=== PATIENT | male | born 1970 | race Caucasian/White ===

== ENCOUNTER → 2024-11-11 08:10 | Outpatient (REF) | payer OTHER, SELFPAY | LOC: RAD 08:10 | PROVIDERS: ATTENDING PHYSICIAN Internal Medicine; FAMILY PHYSICIAN Internal Medicine | DX: N18.30 Chronic kidney disease, stage 3 unspecified (principal) | CPT/HCPCS: 76775 ==

== ENCOUNTER 2024-11-16 12:05 | Emergency (ER) | payer OTHER, SELFPAY ==
[2024-11-16 12:10] VITALS: BP 224/152
[2024-11-16 12:25] VITALS: BP 220/120
[2024-11-16] MEDS: MOTRIN 600 MG PO (12:58)
--- NOTE | 2024-11-16 13:01 | ED.MUSCINJ ---
HPI-Injury
General
Chief Complaint: Fall
Source: patient
Exam Limitations: none
Time Seen by Provider: 11/16/24 12:40
Nursing documentation reviewed up to this point in time: agreed with
History of Present Illness-Injury
Is this injury a work related problem?: No
Is pt an associate of [facility]?: No
Initial Injury comments:
54-year-old male hypertension chronic right ankle pain for 20 years presents with right leg pain slipped on the ice and the went back no pop had some trouble walking was told he might need to have an ankle fusion but the live with the pain, no blood
thinners, no head trauma, did not take his blood pressure meds today did not take any meds today for pain
Past History
Past History
ED Past Medical History: CVA, HTN, Hypercholesterolemia and NIDDM
Social History
Tobacco: Non-smoker
Alcohol: Occasional
Drug: None
Personal: Single
Living: with family
Review of Systems
Review of Systems
All Other Systems: Not applicable
EENT: Reports no symptoms
Respiratory: Reports no symptoms
Cardiac: Reports no symptoms; Denies syncope
ABD/GI: Reports no symptoms
Musculoskeletal: Reports joint pain; Denies muscle stiffness, neck pain or back pain
Phy Exam
Physical Exam
Physical Exam:
Physical Exam
General: no apparent distress, not acutely ill
Neck: No apparent head or neck trauma
Heart: s1/s2 regular rate and rhythm, no murmur. equal radial pulses.
Lungs: no acute respiratory distress. clear bilaterally
Neuro: alert and oriented. no focal neurological deficits
Skin: no rash
Psychiatric: well kept. interactive and cooperative
Extremities: Mild tenderness in the right proximal fibula no obvious knee ligamentous injury patella appears intact
Injury Course
Orders/Labs/Results
Orders:
Orders
11/16/24 12:16
EKG [Electrocardiogram (*1)] Urgent
Reason for Study: Hypertension, Benign
EKG- Treatment ONCE
11/16/24 12:52
Ibuprofen [Motrin] 600 mg PO NOW STA
Tib/Fib, Right 2 View [CR Leg Tibia/fibula Right 2 Vw] Urgent
Comment:
Reason For Exam: fall pain
11/16/24 12:56
Carvedilol [Coreg] 25 mg PO NOW STA
11/16/24 13:40
Huy Wrap Right-Treatment ONCE
MDM/Problems Addressed
Differential Diagnosis Includes:
Contusion abrasion fracture ligamentous injury tendinous injury hypertension
MDM/Problems Addressed:
Knee pain
Chronic conditions affecting care: HTN
Acute Exacerbation and/or Progression of Chronic Illness:
Chronic ankle pain
Acute Exacerbation and/or Progression of Chronic Illness: HTN
*Radiology
Radiology exam reviewed: preliminary read by ED provider
*Pulse Oximetry
Patient hypoxic: no
*Critical Care Note
Total Time (30-74mins, 75-104mins- exclusive of procedures): Not Applicable
Update Note
Update Note:
Will check x-ray, give a dose of his blood pressure med treat with some pain meds likely will need nonemergent orthopedic and PCP follow-up
Update x-ray noted no obvious fracture formal report pending blood pressure improved
ED Attending Note
-
Portions of this chart may have been created with voice recognition software.� Occasional wrong word or��sound alike� substitutions may have occurred due to the inherent limitations of voice recognition software.
Discharge Plan
Departure
Patient Disposition: Home (Routine Discharge)
Date of Disposition: 11/16/24
Time of Disposition: 13:40
Patient with high blood pressure during this ER visit?: Yes
Condition: Good
Discharge Problem:
HTN (hypertension), Injury of knee
Instructions: Preventing falls in adults, Contusion (DC), Skin Abrasions (DC)
Prescriptions:
No Action
aspirin 81 MG tablet,chewable
81 mg PO HS
metformin 500 MG tablet
500 mg PO BID
atorvastatin 80 MG tablet
80 mg PO QPM Qty: 30 0RF
carvedilol [Coreg] 25 MG tablet
25 mg PO BID Qty: 60 0RF
isosorbide mononitrate 60 MG tablet extended release 24 hr
60 mg PO DAILY Qty: 30 0RF
Referrals:
Pilar Sam DO [Family Provider] -
Azar Warren MD [Active] - Follow up in 5-7 days
Activity Restrictions/Additional Instructions:
Rest, ice, Tylenol as needed for pain take your blood pressure medicine as prescribed
Follow-up with Dr. Warren or his associates from [facility] orthopedics
Interventions
Interventions:
*Risk Screen - Suicide Last Done: 11/16/24 12:11
*General Assessment Last Done: 11/16/24 12:11
*Neglect/Abuse Screening Last Done: 11/16/24 12:11
*ED COVID-19 Vaccine History Last Done: 11/16/24 12:11
Discharge Date and Time
Print Language: [place] R[place]
[2024-11-16] MEDS: COREG 25 MG PO (13:09)
[2024-11-16 13:59] VITALS: BP 170/108
== END 2024-11-16 14:05 | disposition home or self-care (01) ==
LOC: EMR 12:05
PROVIDERS: EMERGENCY PHYSICIAN Emergency Medicine; FAMILY PHYSICIAN Internal Medicine
DX: S89.91XA Unspecified injury of right lower leg, initial encounter (principal); W00.0XXA Fall on same level due to ice and snow, initial encounter; I10 Essential (primary) hypertension; E78.00 Pure hypercholesterolemia, unspecified; E11.9 Type 2 diabetes mellitus without complications; Z86.73 Personal history of transient ischemic attack (TIA), and cerebral infarction without residual deficits; G89.29 Other chronic pain
CPT/HCPCS: 99284; 73590; 93005

== ENCOUNTER 2025-01-19 15:30 | Emergency (ER) | payer OTHER, SELFPAY ==
[2025-01-19] VITALS (7 sets, daily range): BP systolic 153–223; BP diastolic 90–141
[2025-01-19 15:57] LABS: % Basophils 0.6 % (0-2); % Eosinophils 0.9 % (0-6); % Immature Granulocytes 0.4 % (0-0.5); % Lymphocytes 19.6 % (20.5-51.1); % Monocytes 5.6 % (1.7-9.3); % Neutrophils 72.9 % (42.2-75.2); Absolute Basophils 0.1 10^3/uL (0-0.2); Absolute Eosinophils 0.1 10^3/uL (0-0.7); Absolute Lymphocytes 1.5 10^3/uL (1.2-3.4); Absolute Monocytes 0.4 10^3/uL (0.1-0.6); Absolute Neutrophils 5.7 10^3/uL (1.4-6.5); Hematocrit 43.3 % (39.0-52.0); Hemoglobin 15.4 g/dL (13.0-18.0); Mean Corp Hgb Conc. 35.6 g/dL (33.0-37.0); Mean Corpuscular Hgb 29.6 pg (27.0-31.0); Mean Corpuscular Volume 83.3 fL (80.0-94.0); Mean Platelet Volume 10.6 fL (7.4-10.4); Nucleated Red Blood Cells % 0 % (-); Platelet Count 169 10^3/uL (130-400); Red Cell Dist. Width 13.2 % (11.5-14.5); White Blood Cell Count 7.8 10^3/uL (4.8-10.8)
[2025-01-19 16:11] LABS: ALT (SGPT) 14 U/L (0-50); AST (SGOT) 19 U/L (17-59); Alkaline Phosphatase 104 U/L (38-126); Blood Urea Nitrogen 27 mg/dl (9-20); Calcium 9.5 mg/dl (8.4-10.2); Carbon Dioxide 24 mmol/L (22-30); Chloride 102 mmol/L (98-107); Glucose 132 mg/dl (70-99); Potassium 3.6 mmol/L (3.5-5.1); Sodium 139 mmol/L (135-145); Total Bilirubin 1.1 mg/dl (0.2-1.3); Total Protein 7.8 g/dl (6.3-8.2); eGFR 36.26
[2025-01-19 16:21] LABS: Troponin I 0.031 ng/ml
[2025-01-19] MEDS: TRANDATE 10 MG IV (16:26)
[2025-01-19] MEDS: APRESOLINE 100 MG PO (16:44)
[2025-01-19] MEDS: NORVASC 10 MG PO (16:44)
[2025-01-19] MEDS: COREG 25 MG PO (16:44)
--- NOTE | 2025-01-19 18:36 | ED.GENMED ---
History of Present Illness
General
Chief Complaint: Blood Pressure Problem
Source: patient
Exam Limitations: none
Time Seen by Provider: 01/19/25 16:08
History of Present Illness
History of Present Illness:
55-year-old male who presents for uncontrolled hypertension. Patient reportedly was at physical therapy and they noted his blood pressure to be elevated. Patient states he has had a lot going on as he had a knee injury as well as his long-term
girlfriend had recently. He states he has not been diligent with his blood pressure medicines in fact he has not taken over the last few days. He is unable to contribute to when he last blood pressure pills. Patient states his blood
pressure is never 'normal'. He states it runs high. Denies any chest pain. In fact he denies any symptoms at all.
Past History
Past History
ED Past Medical History: CVA, HTN, Hypercholesterolemia and NIDDM
Social History
Tobacco: Non-smoker
Alcohol: Occasional
Drug: None
Personal: Single
Living: with family
Phy Exam
Physical Exam
Physical Exam:
CONSTITUTIONAL Patient alert and oriented to person, place and time. Well-appearing. Vital signs reviewed.
HEAD atraumatic, normocephalic.
EYES eyelids normal to inspection, Extraocular muscles intact, Conjunctiva normal, Sclera normal.
NECK normal range of motion, Trachea midline, no jugular venous distention.
RESPIRATORY CHEST No respiratory distress noted, Chest expansion equal, Bilateral breath sounds clear.
CARDIOVASCULAR regular rate and rhythm, Heart sounds normal.
BACK normal inspection, no obvious deformities
UPPER EXTREMITY range of motion normal, Motor strength normal, no cyanosis, no edema.
LOWER EXTREMITY range of motion normal, Motor strength normal, no cyanosis, no edema.
NEURO Speech normal, No focal motor deficits, Bethesda coma scale 15, Memory normal, Cranial Nerves intact to screening exam.
SKIN skin warm, dry, and normal in color.
Course
Orders/Labs/Results
Orders:
Orders
01/19/25 15:35
Electrocardiogram (*1) Urgent
Reason for Study: Hypertension, Benign
EKG- Treatment ONCE
01/19/25 15:37
Complete Blood Count/With Diff Urgent
Comprehensive Metabolic Panel Urgent
Troponin I Urgent
01/19/25 15:49
Electrocardiogram (*1) Urgent
Reason for Study: Hypertension, Benign
EKG- Treatment ONCE
01/19/25 16:19
Labetalol HCl [Trandate] 10 mg IV NOW STA
01/19/25 16:37
Amlodipine [Norvasc] 10 mg PO NOW STA
01/19/25 16:38
Carvedilol [Coreg] 25 mg PO NOW STA
HydrALAZINE [Apresoline] 100 mg PO NOW STA
01/19/25 17:54
Vital Signs- Treatment ONCE
Frequency: Once
Abnormal Lab Results
01/19/25
15:37
MPV 10.6 H fL
(7.4-10.4)
Lymphocytes % 19.6 L %
(20.5-51.1)
BUN 27 H mg/dl
(9-20)
Creatinine 2.1 H mg/dL
(0.7-1.3)
Glucose 132 H mg/dl
(70-99)
01/19/25 15:37
01/19/25 15:37
Vital Signs
Initial and Last Documented VS:
Initial Vital Signs
Temp Pulse Resp BP Pulse Ox
98.2 F 101 18 223/141 96
01/19/25 15:32 01/19/25 15:32 01/19/25 15:32 01/19/25 15:32 01/19/25 15:32
Last Documented Vital Signs
Temp Pulse Resp BP Pulse Ox
98.2 F 86 18 163/93 95
01/19/25 15:32 01/19/25 18:00 01/19/25 18:00 01/19/25 18:00 01/19/25 18:00
MDM/Problems Addressed
MDM/Problems Addressed:
Uncontrolled hypertension
*Pulse Oximetry
Patient hypoxic: no
*EKG
Interpreted by ED Provider?: Yes
Interpretation: abnormal
Comparison EKG: no changes (Compared to November 2024)
Rate: normal
Rhythm: sinus
[place]: normal axis
QRS Pattern: left vent hypertrophy
Ischemia: non-specific ST changes
*Proctologist Interpretation
Rate: normal
Interpretation: normal
Rhythm: sinus
*Critical Care Note
Total Time (30-74mins, 75-104mins- exclusive of procedures): 30 minutes
Data Reviewed
Review of Other/Old Records Reveals: Testing (Prior EKG reviewed)
Source: patient
Prescriptions/Medications Considered But Not Given:
Considered labetalol drip but patient responded well to oral medications
Patient Management
Escalation/DeEscalation of care consider admission/obs:
Asymptomatic and has missed his doses of medications. Will strongly encourage him to take his medications daily and not miss any dosage. Patient appears well otherwise and labs unremarkable. Creatinine noted. Patient does not want to stay. I
will refer him to nephrology. Will also recommend repeat lab testing in the next 3 to 5 days.
ED Attending Note
-
Portions of this chart may have been created with voice recognition software.� Occasional wrong word or��sound alike� substitutions may have occurred due to the inherent limitations of voice recognition software.
Discharge Plan
Departure
Patient Disposition: Home (Routine Discharge)
Date of Disposition: 01/19/25
Time of Disposition: 18:40
Patient with high blood pressure during this ER visit?: Yes
Discharge Problem:
Uncontrolled hypertension, Acute kidney injury
Instructions: Acute kidney injury, High Blood Pressure (DC), BLOOD PRESSURE
Prescriptions:
No Action
aspirin 81 MG tablet,chewable
81 mg PO DAILY
metformin 500 MG tablet
500 mg PO BID
carvedilol [Coreg] 25 MG tablet
25 mg PO BID Qty: 60 0RF
isosorbide mononitrate 60 MG tablet extended release 24 hr
60 mg PO DAILY Qty: 30 0RF
amlodipine 10 mg Tablet
10 mg PO DAILY
hydralazine 100 mg Tablet
100 mg PO TID
rosuvastatin 20 mg Tablet
20 mg PO DAILY
cholecalciferol (vitamin D3) [Vitamin D3] 25 mcg (1,000 unit) Tablet
25 mcg PO DAILY
Referrals:
Pilar Sam DO [Family Provider] -
Misty Snyder MD [Active] -
Activity Restrictions/Additional Instructions:
Please see your doctor in the next 48 hours for follow-up and reevaluation. Return immediately for numbness, tingling, motor weakness, headache, chest pain, shortness of breath or any other concerns. Please do not miss your blood pressure
medications and take them daily as prescribed. Please have your doctor recheck your lab work in the next 3 to 5 days. Please also follow-up with nephrology in the next 1 week.
Interventions
Interventions:
*Risk Screen - Suicide Last Done: 01/19/25 15:32
*Neglect/Abuse Screening Last Done: 01/19/25 15:32
*ED COVID-19 Vaccine History Last Done: 01/19/25 15:32
ED- Cardiac Assessment Last Done: 01/19/25 16:35
ED- Neurological Assessment Last Done: 01/19/25 16:35
ED- Pulmonary Assessment Last Done: 01/19/25 16:35
Discharge Date and Time
Print Language: LATVIAN
== END 2025-01-19 19:05 | disposition home or self-care (01) ==
LOC: EMR 15:30
PROVIDERS: Emergency Medicine; EMERGENCY PHYSICIAN Emergency Medicine; FAMILY PHYSICIAN Internal Medicine
DX: I10 Essential (primary) hypertension (principal); N17.9 Acute kidney failure, unspecified; E78.00 Pure hypercholesterolemia, unspecified; E11.9 Type 2 diabetes mellitus without complications; Z86.73 Personal history of transient ischemic attack (TIA), and cerebral infarction without residual deficits
CPT/HCPCS: 99283; 96374; 80053; 84484; 85025; 93005

== ENCOUNTER 2025-02-16 11:55 | Emergency (ER) | payer OTHER, SELFPAY ==
[2025-02-16] VITALS (8 sets, daily range): BP systolic 121–149; BP diastolic 65–87; PULSE 68–78; BMI 29.9
[2025-02-16 11:58] LABS: Glucose - Point of Care 174 mg/dl (70-99)
[2025-02-16 12:36] LABS: % Basophils 0.7 % (0-2); % Eosinophils 0.7 % (0-6); % Immature Granulocytes 0.2 % (0-0.5); % Monocytes 5.2 % (1.7-9.3); % Neutrophils 80.2 % (42.2-75.2); ALT (SGPT) 16 U/L (0-50); AST (SGOT) 18 U/L (17-59); Absolute Basophils 0.1 10^3/uL (0-0.2); Absolute Eosinophils 0.1 10^3/uL (0-0.7); Absolute Lymphocytes 1.1 10^3/uL (1.2-3.4); Absolute Monocytes 0.4 10^3/uL (0.1-0.6); Absolute Neutrophils 6.6 10^3/uL (1.4-6.5); Albumin 4.3 g/dl (3.5-5.0); Alkaline Phosphatase 63 U/L (38-126); Blood Urea Nitrogen 31 mg/dl (9-20); Calcium 8.9 mg/dl (8.4-10.2); Carbon Dioxide 21 mmol/L (22-30); Chloride 110 mmol/L (98-107); Glucose 182 mg/dl (70-99); Hematocrit 37.5 % (39.0-52.0); Hemoglobin 13.1 g/dL (13.0-18.0); Mean Corp Hgb Conc. 34.9 g/dL (33.0-37.0); Mean Corpuscular Hgb 29.7 pg (27.0-31.0); Nucleated Red Blood Cells % 0 % (-); Platelet Count 163 10^3/uL (130-400); Potassium 4.3 mmol/L (3.5-5.1); Red Blood Cell Count 4.41 10^6/uL (4.70-6.10); Red Cell Dist. Width 13.3 % (11.5-14.5); Sodium 142 mmol/L (135-145); Total Bilirubin 0.7 mg/dl (0.2-1.3); Total Protein 6.5 g/dl (6.3-8.2); White Blood Cell Count 8.2 10^3/uL (4.8-10.8); eGFR 32.51
[2025-02-16] MEDS: NSS 500 IV (13:01)
--- NOTE | 2025-02-16 15:28 | ED.GENMED ---
History of Present Illness
General
Chief Complaint: Fainting Sensation
Source: patient
Exam Limitations: none
Time Seen by Provider: 02/16/25 12:27
Nursing documentation reviewed up to this point in time: agreed with
History of Present Illness
History of Present Illness:
55-year-old male with past medical history of CKD hypertension hyperlipidemia presenting to the emergency department after feeling lightheaded while standing during physical therapy. Patient thought that his sugar may be low and drank some apple
juice and had a cookie he does feel better at this point. Denies any chest pain palpitations shortness of breath recent illness.
Past History
Past History
ED Past Medical History: CVA, HTN, Hypercholesterolemia and NIDDM
Social History
Tobacco: Non-smoker
Alcohol: Occasional
Drug: None
Personal: Single
Living: with family
Review of Systems
Review of Systems
Allergies reviewed?: Yes
All Other Systems: ROS reviewed and negative except as documented in HPI and ROS
Phy Exam
Physical Exam
Physical Exam:
GENERAL: Alert , in no apparent distress
EYE: pupils equal and reactive
NECK: Supple, no significant adenopathy.
ENT: o/p clr, mmm.
CARDIAC: Regular rate and rhythm .
LUNGS: Clear breath sounds bilaterally, no acute respiratory distress, no wheezes/rales/rhonchi
ABDOMEN: Soft, without focal tenderness, no r/g, no cvat
NEUROLOGICAL: Alert and oriented, no focal neuro deficits
SKIN: Warm and dry, skin intact.
MUSCULOSKELETAL: No edema, well perfused.
PSYCH: Normal and appropriate interaction.
Course
Orders/Labs/Results
Orders:
Orders
02/16/25 11:59
EKG [Electrocardiogram (*1)] Urgent
Reason for Study: Vertigo / Dizzy
02/16/25 12:00
EKG- Treatment ONCE
02/16/25 12:05
Complete Blood Count/With Diff Urgent
Comprehensive Metabolic Panel Urgent
02/16/25 12:52
0.9% Sodium Chloride 500 ml [Nss] 500 ml IV BOLUS
Abnormal Lab Results
02/16/25 02/16/25
11:57 12:05
RBC 4.41 L 10^6/uL
(4.70-6.10)
Hct 37.5 L %
(39.0-52.0)
MPV 11.0 H fL
(7.4-10.4)
Absolute Neuts (auto) 6.6 H 10^3/uL
(1.4-6.5)
Absolute Lymphs (auto) 1.1 L 10^3/uL
(1.2-3.4)
Neutrophils % 80.2 H %
(42.2-75.2)
Lymphocytes % 13.0 L %
(20.5-51.1)
Chloride 110 H mmol/L
(98-107)
Carbon Dioxide 21 L mmol/L
(22-30)
BUN 31 H mg/dl
(9-20)
Creatinine 2.3 H mg/dL
(0.7-1.3)
Glucose 182 H mg/dl
(70-99)
POC Glucose 174 H mg/dl
(70-99)
02/16/25 12:05
02/16/25 12:05
Vital Signs
Initial and Last Documented VS:
Initial Vital Signs
Temp Pulse Resp BP Pulse Ox
97.6 F 68 18 137/68 98
02/16/25 11:57 02/16/25 11:57 02/16/25 11:57 02/16/25 11:57 02/16/25 11:57
Last Documented Vital Signs
Temp Pulse Resp BP Pulse Ox
97.6 F 68 18 137/68 98
02/16/25 11:57 02/16/25 11:57 02/16/25 11:57 02/16/25 11:57 02/16/25 11:57
MDM/Problems Addressed
MDM/Problems Addressed:
55-year-old male presenting to the emergency department today with concerns of brief episode of lightheadedness when standing up with PT. No chest pain shortness of breath or palpitations associated. Upon arrival vital signs are normal patient no
distress asymptomatic at this point after drinking some apple juice. Labs here showing potential slight dehydration with elevated BUN creatinine very slightly above baseline there is a possibility of slight dehydration was given fluids. Otherwise
patient with no chest pain or palpitations at any point. PE seems very unlikely at this point no concerns of leg swelling normal vital signs no changes to the EKG. He otherwise was asymptomatic throughout ER stay normal orthostatic vital signs
patient appears stable for discharge return precautions given.
*Critical Care Note
Total Time (30-74mins, 75-104mins- exclusive of procedures): Not Applicable
ED Attending Note
-
Portions of this chart may have been created with voice recognition software.� Occasional wrong word or��sound alike� substitutions may have occurred due to the inherent limitations of voice recognition software.
Discharge Plan
Departure
Patient Disposition: Home (Routine Discharge)
Date of Disposition: 02/16/25
Time of Disposition: 15:30
Patient with high blood pressure during this ER visit?: No
Condition: Good
Covid-19: Not Applicable
Discharge Problem:
Lightheadedness
Instructions: Near Fainting (DC)
Prescriptions:
No Action
aspirin 81 MG tablet,chewable
81 mg PO DAILY
metformin 500 MG tablet
500 mg PO BID
carvedilol [Coreg] 25 MG tablet
25 mg PO BID Qty: 60 0RF
isosorbide mononitrate 60 MG tablet extended release 24 hr
60 mg PO DAILY Qty: 30 0RF
amlodipine 10 mg Tablet
10 mg PO DAILY
hydralazine 100 mg Tablet
100 mg PO TID
rosuvastatin 20 mg Tablet
20 mg PO DAILY
cholecalciferol (vitamin D3) [Vitamin D3] 25 mcg (1,000 unit) Tablet
25 mcg PO DAILY
Referrals:
Pilar Sam DO [Family Provider] -
Activity Restrictions/Additional Instructions:
You came to the emergency department today after feeling lightheaded. Here your reassuring assessment. Please stay hydrated and follow-up closely with your primary care doctor. If you develop any chest pain palpitations or worsening
lightheadedness please immediately return to the ER for reassessment.
Interventions
Interventions:
*Risk Screen - Suicide Last Done: 02/16/25 11:57
*General Assessment Last Done: 02/16/25 11:57
*Neglect/Abuse Screening Last Done: 02/16/25 11:57
*ED- Fall Risk Assessment Last Done: 02/16/25 11:57
*ED COVID-19 Vaccine History Last Done: 02/16/25 11:57
Discharge Date and Time
Print Language: BRAZILIAN
== END 2025-02-16 16:10 | disposition home or self-care (01) ==
LOC: EMR 11:55
PROVIDERS: Emergency Medicine; EMERGENCY PHYSICIAN Emergency Medicine; FAMILY PHYSICIAN Internal Medicine
DX: R42 Dizziness and giddiness (principal); I12.9 Hypertensive chronic kidney disease with stage 1 through stage 4 chronic kidney disease, or unspecified chronic kidney disease; E11.22 Type 2 diabetes mellitus with diabetic chronic kidney disease; N18.9 Chronic kidney disease, unspecified; E78.00 Pure hypercholesterolemia, unspecified; Z86.73 Personal history of transient ischemic attack (TIA), and cerebral infarction without residual deficits
CPT/HCPCS: 99283; 80053; 82962; 85025; 93005

== ENCOUNTER 2025-04-26 16:18 | Emergency (ER) | payer OTHER, SELFPAY ==
[2025-04-26] VITALS (7 sets, daily range): BP systolic 168–195; BP diastolic 93–135; BMI 28.2
--- NOTE | 2025-04-26 17:23 | ED.GENMED ---
History of Present Illness
General
Chief Complaint: Blood Pressure Problem
Source: patient
Exam Limitations: none
Time Seen by Provider: 04/26/25 16:41
Nursing documentation reviewed up to this point in time: agreed with
History of Present Illness
History of Present Illness:
Patient is a 55-year-old male with history hypertension, hyperlipidemia, diabetes, CAD who presents to the emergency department from PCP after high blood pressure readings in office. Patient states he was sent during an annual physical at his
primary care office where his blood pressure was extremely elevated. Patient is asymptomatic at this time and denies any headache, visual changes/double vision, dizziness/lightheadedness, tearing back pain, chest pain breath, numbness/tingling or
weakness in lower extremities.
Patient states he is on multiple blood pressure medications at home as prescribed by his primary care provider although was unsure of the exact name. He does admit to taking his hydralazine twice a day rather than 3 times a day as prescribed.
Patient denies any other recent changes in medications.
Past History
Past History
ED Past Medical History: CVA, HTN, Hypercholesterolemia and NIDDM
Social History
Tobacco: Non-smoker
Alcohol: Occasional
Drug: None
Personal: Single
Living: with family
Review of Systems
Review of Systems
Allergies reviewed?: Yes
All Other Systems: ROS reviewed and negative except as documented in HPI and ROS
Phy Exam
Physical Exam
Physical Exam:
Vitals: Hypertensive, otherwise vital signs are stable. Afebrile
General: Patient is in no apparent distress
Skin: Warm and dry, no rashes or lesions
Head: Normocephalic, atraumatic
Eyes: Sclera nonicteric. EOMs intact. No nystagmus.
Throat: Protecting airway
Neck: Normal ROM, no cervical spine tenderness, no meningismus
Cardiac: Regular rate and rhythm, no murmurs. 2+ palpable radial pulses
Pulm: Normal respiratory effort, no wheezes, rales, rhonchi heard on exam
.
Abdomen: No abdominal tenderness.
Extremities: No evidence of cyanosis or edema. Strength 5/5 in bilateral upper and lower extremities. Sensation intact
Neuro: AAOx3. CN II-XII grossly intact on examination. Fluid speech. No facial droop or asymmetry. No focal neurologic deficits.
Psychiatric: Normal affect.
Course
Orders/Labs/Results
Orders:
Orders
04/26/25 16:24
EKG [Electrocardiogram (*1)] Urgent
Reason for Study: Hypertension, Benign
04/26/25 16:25
EKG- Treatment ONCE
04/26/25 17:10
Complete Blood Count/With Diff Urgent
Comprehensive Metabolic Panel Urgent
Troponin I Urgent
04/26/25 18:35
HydrALAZINE [Apresoline] 100 mg PO NOW STA
Abnormal Lab Results
04/26/25
17:10
MPV 10.9 H fL
(7.4-10.4)
Lymphocytes % 19.1 L %
(20.5-51.1)
Carbon Dioxide 21 L mmol/L
(22-30)
BUN 39 H mg/dl
(9-20)
Creatinine 2.2 H mg/dL
(0.7-1.3)
Glucose 118 H mg/dl
(70-99)
04/26/25 17:10
04/26/25 17:10
Vital Signs
Initial and Last Documented VS:
Initial Vital Signs
Temp Pulse Resp BP Pulse Ox
98.5 F 87 18 195/135 96
04/26/25 16:23 04/26/25 16:23 04/26/25 16:23 04/26/25 16:23 04/26/25 16:23
Last Documented Vital Signs
Temp Pulse Resp BP Pulse Ox
98.5 F 86 18 168/97 99
04/26/25 16:23 04/26/25 20:34 04/26/25 20:34 04/26/25 20:34 04/26/25 20:34
MDM/Problems Addressed
Differential Diagnosis Includes:
Not limited to: Asymptomatic hypertension, hypertensive emergency, medication noncompliance, etc.
MDM/Problems Addressed:
55 year old male presenting with asymptomatic hypertension found at routine office visit at PCP. He denies headache, visual changes, back pain, chest pain, shortness of breath, or focal weakness. He is hypertensive on arrival, otherwise has stable
vital signs. EKG shows ST depressions in anterolateral leads which are not much more prominent than prior. Patient does not describe any current chest pain - do not suspect ACS however will screen with troponin. ED plan: check labs, troponin, and
continue to monitor BP. Patient is prescribed carvedilol 12.5 BID, amlodipine 10mg QD, and hydralazine 100mg TID for BP management.
Update: Labs reviewed. CBC without acute abnormalities. Chemistry reveals stable renal insufficiency. Troponin normal. He remains hypertensive although asymptomatic. No evidence of end organ damage. Do not feel IV antihypertensives indicated at this
time. He does report poor compliance with hydralazine and typically only takes BID. Will give PO dose of 100mg hydralazine in ED.
BP decreased to 168/97 after hydralazine. He remains asymptomatic. Feel stable for discharge home with PCP f/u. Advised to increase hydralazine to TID and continue to take other meds as prescribed. Discussed importance of PCP / cardiology f/u as he
will likely require medication adjsutments to better manage hypertension.
Chronic conditions affecting care:
Hypertension, hyperlipidemia, diabetes
Acute Exacerbation and/or Progression of Chronic Illness:
Acutely hypertensive
*Pulse Oximetry
Patient hypoxic: no (99% on room air)
*EKG
Interpreted by ED Provider?: Yes
EKG Intrepretation Date: 04/26/25
Interpretation: abnormal
Comparison EKG: no changes
Heart Rate: 83
Rate: normal
Rhythm: sinus
[place]: normal axis
Interval: normal QT interval
QRS Pattern: normal QRS
Ischemia: non-specific ST changes (ST depressions in anterior and lateral leads although similar to prior EKG)
*Can Vacuum Tester Interpretation
Rate: normal
Interpretation: normal
Heart Rate: 86
Rhythm: sinus
*Critical Care Note
Total Time (30-74mins, 75-104mins- exclusive of procedures): Not Applicable
ED Attending Note
-
Portions of this chart may have been created with voice recognition software.� Occasional wrong word or��sound alike� substitutions may have occurred due to the inherent limitations of voice recognition software.
Discharge Plan
Departure
Patient Disposition: Home (Routine Discharge)
Date of Disposition: 04/26/25
Time of Disposition: 20:11
Patient with high blood pressure during this ER visit?: Yes
Condition: Good
Covid-19: Not Applicable
Discharge Problem:
Asymptomatic hypertension
Instructions: High Blood Pressure (DC), BLOOD PRESSURE
Prescriptions:
No Action
aspirin 81 MG tablet,chewable
81 mg PO DAILY
metformin 500 MG tablet
500 mg PO BID
carvedilol [Coreg] 25 MG tablet
25 mg PO BID Qty: 60 0RF
isosorbide mononitrate 60 MG tablet extended release 24 hr
60 mg PO DAILY Qty: 30 0RF
amlodipine 10 mg Tablet
10 mg PO DAILY
hydralazine 100 mg Tablet
100 mg PO TID
rosuvastatin 20 mg Tablet
20 mg PO DAILY
cholecalciferol (vitamin D3) [Vitamin D3] 25 mcg (1,000 unit) Tablet
25 mcg PO DAILY
Referrals:
Pilar Sam DO [Family Provider, Internal Medicine] - Follow up in 2-3 days
Wayne,Ramon B., MD [Active, Cardiology] - Call in 1-3 days for appt
Activity Restrictions/Additional Instructions:
RETURN TO THE EMERGENCY DEPARTMENT WITH ANY HEADACHE, CHEST PAIN, SHORTNESS OF BREATH, SEVERE BACK PAIN, NUMBNESS/TINGLING OR WEAKNESS IN EXTREMITIES, NEUROLOGIC SYMPTOMS INCLUDING CONFUSION, BLURRY VISION, OR ANY OTHER CONCERNS
- As discussed�your blood pressure was elevated while in the emergency department. You were given 100 mg p.o. hydralazine.
- You should continue to take your medications as prescribed. Please be sure to increase your hydralazine to 3 times a day.
-Please take your blood pressure once a day and keep a log to follow-up with your primary care provider
- Follow-up with your primary care for further evaluation/management and for further management of your hypertension. You will likely require medication adjustments.
Monitor your symptoms closely and return to the emergency department with any acute worsening/new symptoms or any other concerns
Interventions
Interventions:
*Risk Screen - Suicide Last Done: 04/26/25 16:23
*General Assessment Last Done: 04/26/25 16:23
*Neglect/Abuse Screening Last Done: 04/26/25 16:23
*ED- Fall Risk Assessment Last Done: 04/26/25 20:40
*ED COVID-19 Vaccine History Last Done: 04/26/25 16:23
*Nursing Disposition Last Done: 04/26/25 20:40
ED- Cardiac Assessment Last Done: 04/26/25 17:43
ED- Neurological Assessment Last Done: 04/26/25 17:42
ED- Pulmonary Assessment Last Done: 04/26/25 17:42
Discharge Date and Time
Discharge Date/Time: 04/26/25 20:41
Print Language: GREENLANDIC
[2025-04-26 17:29] LABS: % Basophils 0.7 % (0-2); % Eosinophils 1.7 % (0-6); % Immature Granulocytes 0.2 % (0-0.5); % Lymphocytes 19.1 % (20.5-51.1); % Monocytes 6.3 % (1.7-9.3); Absolute Basophils 0.1 10^3/uL (0-0.2); Absolute Eosinophils 0.1 10^3/uL (0-0.7); Absolute Lymphocytes 1.6 10^3/uL (1.2-3.4); Absolute Monocytes 0.5 10^3/uL (0.1-0.6); Hematocrit 43.6 % (39.0-52.0); Hemoglobin 15.6 g/dL (13.0-18.0); Mean Corp Hgb Conc. 35.8 g/dL (33.0-37.0); Mean Corpuscular Hgb 30.2 pg (27.0-31.0); Mean Corpuscular Volume 84.3 fL (80.0-94.0); Mean Platelet Volume 10.9 fL (7.4-10.4); Nucleated Red Blood Cells % 0 % (-); Platelet Count 169 10^3/uL (130-400); Red Blood Cell Count 5.17 10^6/uL (4.70-6.10); Red Cell Dist. Width 13.2 % (11.5-14.5); White Blood Cell Count 8.3 10^3/uL (4.8-10.8)
[2025-04-26 17:45] LABS: ALT (SGPT) 17 U/L (0-50); AST (SGOT) 17 U/L (17-59); Albumin 4.6 g/dl (3.5-5.0); Alkaline Phosphatase 81 U/L (38-126); Blood Urea Nitrogen 39 mg/dl (9-20); Calcium 9.4 mg/dl (8.4-10.2); Carbon Dioxide 21 mmol/L (22-30); Chloride 107 mmol/L (98-107); Estimated Creatinine Clearance 37 ml/min; Glucose 118 mg/dl (70-99); Potassium 4.3 mmol/L (3.5-5.1); Sodium 138 mmol/L (135-145); Total Bilirubin 0.9 mg/dl (0.2-1.3); Total Protein 7.2 g/dl (6.3-8.2); eGFR 34.29
[2025-04-26 17:56] LABS: Troponin I 0.015 ng/ml
[2025-04-26] MEDS: APRESOLINE 100 MG PO (19:20)
== END 2025-04-26 20:41 | disposition home or self-care (01) ==
LOC: EMR 16:18
PROVIDERS: Physician Assistant; EMERGENCY PHYSICIAN Emergency Medicine; FAMILY PHYSICIAN Internal Medicine
DX: I10 Essential (primary) hypertension (principal); E78.00 Pure hypercholesterolemia, unspecified; E11.9 Type 2 diabetes mellitus without complications; I25.10 Atherosclerotic heart disease of native coronary artery without angina pectoris; Z79.899 Other long term (current) drug therapy
CPT/HCPCS: 99284; 80053; 84484; 85025; 93005

== ENCOUNTER → 2025-10-26 12:32 | Outpatient (REF) | payer OTHER, SELFPAY | LOC: HWRCS 12:32 | PROVIDERS: ATTENDING PHYSICIAN Student in an Organized Health Care Education/Training Program; FAMILY PHYSICIAN Internal Medicine | DX: R00.2 Palpitations (principal); I10 Essential (primary) hypertension; Z86.73 Personal history of transient ischemic attack (TIA), and cerebral infarction without residual deficits; I25.10 Atherosclerotic heart disease of native coronary artery without angina pectoris | CPT/HCPCS: 93306 ==